=== PATIENT | male | born 1960 | race Caucasian/White ===

== ENCOUNTER 2018-07-09 22:02 | Emergency (ER) | payer OTHER ==
[~2018-07-09] VITALS: Ht 180.3 cm; Wt 83.9 kg
[~2018-07-09 22:02] MED LIST: ACETAMINOPHEN-1 EAC1 PO; AMOX TR-K CLV1 EAC3 PO; BISACODYL5 MG PO; HYDROCODON-ACE1 EAC7 PO; IBUPROFEN 800800 M1 PO
[2018-07-09 23:06] LABS: ABSOLUTE BASOPHILS 0.1 thou/uL (0.0-0.2); ABSOLUTE EOSINOPHILS 0.4 thou/uL (0.0-0.7); ABSOLUTE LYMPHOCYTES 1.8 thou/uL (0.8-5.3); ABSOLUTE MONOCYTES 0.8 thou/uL (0.0-1.2); ABSOLUTE NEUTROPHILS 8.3 thou/uL (1.6-8.1); BASOPHILS 0.8 %; EOSINOPHILS 3.9 %; HEMOGLOBIN 12.7 gm/dL (14.0-18.0); LYMPHOCYTES 15.6 %; MCH 32.5 pg (26.0-34.0); MCHC 34.4 g/dL (28.0-37.0); MCV 94.4 fL (80.0-100.0); MPV 7.4 fl. (7.2-11.1); NUCLEATED RBCS 0 /100WBC; PLATELET COUNT* 281 thou/uL (150-400); POLYS 72.7 %; RBC 3.92 mil/uL (4.50-6.00); RDW-CV 13.7 % (10.5-14.5); WBC 11.4 thou/uL (4.0-11.0)
[2018-07-09] MEDS ORDERED: LEVAQUIN 500 M500 M2 PO (23:08)
[2018-07-09 23:48] VITALS: BP 134/78
[2018-07-10 00:30] LABS: ESR (SEDRATE) 50 mm/hr (0-20)
== END 2018-07-09 23:48 | disposition home or self-care (01) ==
LOC: M.ERS 22:02
PROVIDERS: Physician Assistant
DX: M70.22 Olecranon bursitis, left elbow (principal); Y93.89 Activity, other specified